=== PATIENT | female | born 1950 | race American Indian/Alaskan Native ===

== ENCOUNTER 2018-12-03 05:21 | Observation (INO) | payer MEDICARE, MEDICAID ==
[2018-12-02 14:32] LABS: BASOPHILS % (AUTO) 0.6 % (0-1); EOSINOPHILS # (AUTO) 0.1 X10'3 (0-0.9); EOSINOPHILS % (AUTO) 1.7 % (0-6); LYMPHOCYTES # (AUTO) 1.3 X10'3 (1.1-4.8); LYMPHOCYTES % (AUTO) 18.3 % (21-51); MEAN CORPUSCULAR HEMOGLOBIN 29.2 PG (27.0-31.0); MEAN CORPUSCULAR HGB CONC 33.1 g/dL (33.0-36.5); MEAN CORPUSCULAR VOLUME 88.1 FL (78-98); MONOCYTES # (AUTO) 0.5 X10'3 (0-0.9); MONOCYTES % (AUTO) 6.6 % (2-12); NEUTROPHILS # (AUTO) 5.1 X10'3 (1.8-7.7); NEUTROPHILS % (AUTO) 72.8 % (42-75); PRE OP HEMATOCRIT 40.5 % (35.0-45.0); PRE OP HEMOGLOBIN 13.4 g/dL (12.0-16.0); PRE OP PLATELET COUNT 229 X10'3 (140-440); RED BLOOD COUNT 4.59 X10'6 (4.20-5.60); RED CELL DISTRIBUTION WIDTH 14.7 % (11.5-14.5)
[2018-12-02 14:33] LABS: CLARITY,URINE CLEAR (Clear); COLOR,URINE YELLOW (Yellow); GLUCOSE, URINE NEGATIVE (Neg); KETONES,URINE NEGATIVE (Neg); LEUKOCYTE ESTERASE ,URINE NEGATIVE (Neg); NITRITES, URINE NEGATIVE (Neg); OCCULT BLOOD,URINE TRACE-LYSED (Neg); PROTEIN,URINE NEGATIVE (Neg); UROBILINOGEN,URINE 0.2 E.U/dL (0.2-1.0)
[2018-12-02 14:41] LABS: PRE OP PROTIME 10.1 SECONDS (9.0-12.0)
[2018-12-02 14:41] LABS: UA COLLECTION TYPE CLN CATCH MIDSTREAM
[2018-12-02 14:42] LABS: BACTERIA,URINE 1+ /HPF (Neg); RBC,URINE 0-2 /HPF (0-2); SQUAMOUS EPITHELIAL CELL,UR FEW /LPF (FEW); WBC,URINE 0-4 /HPF (0-4)
[2018-12-02 14:52] LABS: ALBUMIN 3.8 G/DL (3.4-5.0); ALKALINE PHOSPHATASE 77 IU/L (46-116); BLOOD UREA NITROGEN 17 MG/DL (7-18); BUN/CREATININE RATIO 18.3 (6.6-38.0); CALCIUM 9.3 MG/DL (8.5-10.1); CHLORIDE 107 MMOL/L (99-107); CREATININE 0.93 MG/DL (0.40-0.90); PRE OP ALT 24 U/L (30-65); PRE OP ANION GAP 6 (8-16); PRE OP AST 22 U/L (10-37); PRE OP BILIRUB, TOTAL 0.9 MG/DL (0.0-1.0); PRE OP GLUCOSE 96 MG/DL (70-104); PRE OP POTASSIUM 3.9 MMOL/L (3.4-5.1); PRE OP SODIUM 141 MMOL/L (135-145); TOTAL CARBON DIOXIDE 27.9 MMOL/L (24-32); TOTAL PROTEIN 7.5 G/DL (6.4-8.2); eGFR 60 ML/MIN
[~2018-12-03] VITALS: Ht 167.6 cm; Wt 78.9 kg
[2018-12-03] VITALS (15 sets, daily range): BP systolic 128–152; BP diastolic 45–90
[~2018-12-03 05:21] MED LIST: FOLI1TAB16 PO; HYDR-3965 PO; HYDR200T80 PO; LISI40TA4 PO; MELO15TA13 PO; METH2.5T PO; OXYB5TAB11 PO
[2018-12-03] MEDS ORDERED: ringers solution, lacted 1,000 ML IV SCH ×2 (05:30→08:33)
[2018-12-03] MEDS ORDERED: cefazolin/dext.iso 2gm/100ml 100 ML IV ONE (05:30)
[2018-12-03] MEDS ORDERED: famotidine 20mg tablet PO ONE (05:30)
[2018-12-03] MEDS ORDERED: vancomycin inj 1,500 MG in normal saline 300ml IV soln IV ONE (05:30)
[2018-12-03] MEDS ORDERED: BUPIVACAINE liposomal/PF 13.3 MG/ML vial IM ONE (07:15)
[2018-12-03] MEDS ORDERED: fentaNYL/PF 50MCG/1 ML 2ML syringe ONE (07:17)
[2018-12-03] MEDS ORDERED: propofol inj 20 ML IV ONE (07:18)
[2018-12-03] MEDS ORDERED: ROPIVAcaine 0.5% (5mg/ml) 30ml vial ONE (07:18)
[2018-12-03] MEDS ORDERED: midazolam 2 mg/2 ml injection ONE ×2 (07:18)
[2018-12-03] MEDS ORDERED: sevoflurane 250ml liquid IH ONE (07:26)
[2018-12-03] MEDS ORDERED: proCHLORperazine 10 MG/2 ml inj IV PRN (08:35)
[2018-12-03] MEDS ORDERED: morphine 4 MG/ML inj SYRINge IV PRN ×2 (08:35)
[2018-12-03] MEDS ORDERED: meperidine/PF 25mg/ml syringe IV PRN ×3 (08:35)
[2018-12-03] MEDS ORDERED: ondansetron/PF 4mg/2ml inj IV PRN (08:35)
[2018-12-03] MEDS ORDERED: bisacodyl 10mg suppository rectal RC PRN (10:05)
[2018-12-03] MEDS ORDERED: CADD PCA waste documentation MC PRN (10:05)
[2018-12-03] MEDS ORDERED: magnesium hydroxide 30ml (MOM) UD suspension PO PRN (10:05)
[2018-12-03] MEDS ORDERED: acetaminophen 325mg tablet PO PRN (10:05)
[2018-12-03] MEDS ORDERED: metoclopramide 5 mg/ml inj IV PRN (10:05)
[2018-12-03] MEDS ORDERED: naloxone 0.4 mg/ml inj IV PRN (10:05)
[2018-12-03] MEDS ORDERED: diphenhydrAMINE 25mg capsule PO PRN ×2 (10:05)
[2018-12-03] MEDS: HYDROmorphone/NS 1 mg/ml CADD 50 ML IV SCH ×7 (10:47→23:00)
--- NOTE | 2018-12-03 11:10 | NUR ---
Patient came to floor bedside report from gospel singer
--- NOTE | 2018-12-03 11:13 | NUR ---
ALL CRITERIA FOR TRANSFER TO THE FLOOR HAS BEEN ACHIEVED. VSS. BED LOW, CALL LIGHT AND VS. SET IN PLACE. RN PRESENT TO ACCEPT CARE. PATIENT RESTING COMFORTABLY IN BED. BELONGINGS SENT WITH PATIENT. DRESSINGS CDIPerico MENJIVAR GIVEN BEDSIDE REPORT UPON ARRIVAL AND TRANSFER OVER FROM [facility] TO [facility]. VSS. ALL QUESTIONS ANSWERED. FAMILY AT BEDSIDE. Addendum: 12/03/18 at 1116 by Ramirez Mahoney RN, RN Amended: Links added.
[2018-12-03] MEDS: potassium cl 20mEq in 1/2 NS 1,000 ML IV SCH ×2 (11:51→19:46)
[2018-12-03] MEDS: hydroxychloroquine 200mg tablet PO SCH (14:30)
[2018-12-03] MEDS: acetaminophen 325mg tablet PO SCH ×2 (14:49→19:49)
[2018-12-03] MEDS: gabapentin 300mg capsule PO SCH ×2 (14:49→20:10)
[2018-12-03] MEDS: ceFAZolin 1GM/D5W- ADD-VANTAGE 50 ML IV SCH (15:54)
--- NOTE | 2018-12-03 18:06 | NUR ---
Problems reprioritized. Patient report given, questions answered & plan of care reviewed with ASTRID Harper
--- NOTE | 2018-12-03 18:42 | NUR ---
Patient in room ORTHO 4013. I have received report from Brady LEAVITT and had the opportunity to ask questions and assume patient care.
[2018-12-03] MEDS: sennosides/docusate sodium tablet PO SCH (19:48)
[2018-12-03] MEDS: ascorbic acid 500mg tablet PO SCH (19:49)
[2018-12-03] MEDS ORDERED: vancomycin/NS 1 GM ADD-VANTAGE 250 ML IV SCH (20:00)
[2018-12-03] MEDS: enoxaparin 30mg/0.3ml syringe SQ SCH (20:03)
[2018-12-03] MEDS ORDERED: sennosides 8.6mg tablet PO SCH (21:00)
[2018-12-04] MEDS: ceFAZolin 1GM/D5W- ADD-VANTAGE 50 ML IV SCH (00:07)
[2018-12-04] MEDS: HYDROmorphone/NS 1 mg/ml CADD 50 ML IV SCH ×3 (01:00→05:00)
[2018-12-04] MEDS: acetaminophen 325mg tablet PO SCH (02:05)
[2018-12-04] MEDS: potassium cl 20mEq in 1/2 NS 1,000 ML IV SCH (04:55)
[2018-12-04] MEDS ORDERED: HYDROcodone/acetaminophen 10/325mg tab PO PRN ×2 (05:40)
[2018-12-04 06:00] VITALS: BP 125/49
[2018-12-04 06:21] LABS: BASOPHILS % (AUTO) 0.4 % (0-1); EOSINOPHILS # (AUTO) 0.1 X10'3 (0-0.9); EOSINOPHILS % (AUTO) 2.2 % (0-6); HEMATOCRIT 34.8 % (35.0-45.0); HEMOGLOBIN 11.8 g/dl (12.0-16.0); LYMPHOCYTES # (AUTO) 1.3 X10'3 (1.1-4.8); LYMPHOCYTES % (AUTO) 19.2 % (21-51); MEAN CORPUSCULAR VOLUME 88.4 FL (78-98); MEAN PLATELET VOLUME 9.2 FL (7.4-10.4); MONOCYTES # (AUTO) 0.5 X10'3 (0-0.9); MONOCYTES % (AUTO) 7.9 % (2-12); NEUTROPHILS # (AUTO) 4.8 X10'3 (1.8-7.7); NEUTROPHILS % (AUTO) 70.3 % (42-75); PLATELET COUNT 194 X10'3 (140-440); RED BLOOD COUNT 3.93 X10'6 (4.20-5.60); RED CELL DISTRIBUTION WIDTH 14.5 % (11.5-14.5); WHITE BLOOD COUNT 6.8 X10'3 (4.5-11.0)
--- NOTE | 2018-12-04 06:25 | NUR ---
Problems reprioritized. Patient report given, questions answered & plan of care reviewed with Brady RN. Patient is resting and shows no sign of distress.
[2018-12-04 06:27] LABS: ANION GAP 6 (8-16); CHLORIDE 107 MMOL/L (99-107); SODIUM 139 MMOL/L (135-145); TOTAL CARBON DIOXIDE 26.5 MMOL/L (24-32)
--- NOTE | 2018-12-04 06:50 | NUR ---
Patient in room ORTHO 4013. I have received report from Eugenia Urena RN and had the opportunity to ask questions and assume patient care.
[2018-12-04] MEDS: hydroxychloroquine 200mg tablet PO SCH (07:45)
[2018-12-04 07:46] VITALS: BP_SYST 125
[2018-12-04] MEDS: sennosides/docusate sodium tablet PO SCH (07:46)
[2018-12-04] MEDS: enoxaparin 30mg/0.3ml syringe SQ SCH (07:47)
[2018-12-04] MEDS: gabapentin 300mg capsule PO SCH (07:47)
[2018-12-04] MEDS: ascorbic acid 500mg tablet PO SCH (07:47)
[2018-12-04] MEDS ORDERED: lisinopril 20mg tablet PO SCH (08:00)
[2018-12-04] MEDS ORDERED: multivitamins, therapeutics tablet PO SCH (08:00)
--- NOTE | 2018-12-04 09:45 | NUR ---
patient discharged to home with spouse and al belongings sent with patient, patient educated on follow up appointment and surgical incision care. Patient stable on discharge
[2018-12-04] MEDS ORDERED: celeCOXIB 100mg capsule PO SCH (20:00)
== END 2018-12-04 11:00 | disposition home or self-care (01) ==
LOC: PAS 05:21 → ORTHO 4S 11:34
PROVIDERS: ADMIT Orthopaedic Surgery; ATTEND Orthopaedic Surgery
DX: S42.211A Unspecified displaced fracture of surgical neck of right humerus, initial encounter for closed fracture (principal); S46.111A Strain of muscle, fascia and tendon of long head of biceps, right arm, initial encounter; X58.XXXA Exposure to other specified factors, initial encounter; Y93.89 Activity, other specified; Y92.89 Other specified places as the place of occurrence of the external cause; Y99.8 Other external cause status
CPT/HCPCS: 23615; 24340; 36415; 73060; 76000; 80051; 80053; 81001; 82948; 85025; 85610; 85730; 93005; 96365; 96366; 96367; 96372; 96375; 97110; 97116; 97161; C1713; G0378; J0690; J1170; J1650; J2250; J2704; J3010; J3370; J3490; J7120; A4565; A6250; A6258; A6449; A7000; J2795